=== PATIENT | female | born 1970 ===

== ENCOUNTER 2017-11-14 12:21 | Emergency (ER) | payer OTHER ==
[2017-11-14] MEDS ORDERED: ACETAMINOPHEN 325 MG TAB PO ONE (12:53)
[2017-11-14] MEDS ORDERED: IBUPROFEN 200 MG TAB PO ONE (12:53)
--- NOTE | 2017-11-14 13:04 | EDPHY ---
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 That surgery was performed out of state in [place]. The patient explains that she developed onset of pain without antecedent trauma over the past 2 days early 7/10 intensity achy in nature with new onset swelling in addition to the volar aspect of the proximal ulna near the site of screw per patient. She explains her baseline arthritic pain from that injuries typically 2/10 achy in nature. ROS: No fevers or chills. No fatigue. No other constitutional symptoms. HEENT: No complaints except for a skin cracked in her right nare for the last 2 weeks. pulmonary call pleuritic pain or shortness of breath cardiovascular: No headedness. She reports localized swelling the area of pain but no 2nd humeral region 10 swelling. No discoloration to the arm. Integumentary: No skin rash noted. Musculoskeletal: No recent trauma. 7 ROS is otherwise not. 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 No IV drug use. No cocaine Occasional marijuana. Occasional alcohol Smoking Status: Light smoker Physical Exam: General Appearance: Alert, no distress. Eyes: Pupils equal and round no pallor or injection. ENT, Mouth: Mucous membranes moist. Right nare A do not appreciate any significant soft tissue infectious etiology at the site where she notes a"crack ". Respiratory: There are no retractions, lungs are clear to auscultation. Cardiovascular: Regular rate and rhythm. Patient maintains 2+ symmetric radialis pulses bilateral upper extremities. No delayed capillary refill, pallor or coolness to the left upper extremity. Neurological: GCS 15 with no sensory motor deficits in the affected extremity appreciated. Skin: Warm and dry, no rashes. Musculoskeletal: Extremities atraumatic mole except for left lower extremity Left upper extremity: Patient has mild swelling to the proximal volar ulna with associated tenderness-moderate to exquisite. No significant warmth to touch is appreciated. No forearm swelling and tenderness is present. Psychiatric: Mood and affect normal DIFFERENTIAL DIAGNOSIS: After history and physical exam differential diagnosis was considered for infection at the ORIF site, osteomyelitis, osteoarthritis, DVT Constitutional: Initial Vital Signs Temperature (C) 36.8 C 11/14/17 12:31 Heart Rate 85 11/14/17 12:31 Respiratory Rate 18 11/14/17 12:31 Blood Pressure 127/86 H 11/14/17 12:31 O2 Sat (%) 97 11/14/17 12:31 O2 Delivery Mode Room Air Allergies/Adverse Reactions: ciprofloxacin Allergy (Verified 11/14/17 12:43) Home Medications: Medication Instructions Recorded Ibuprofen [Motrin (*)] 600 mg PO Q6 PRN #30 tab 11/14/17 traMADol [Ultram 50 mg (*)] 50 - 100 mg PO Q4 PRN #20 tab 11/14/17 MDM/Departure - MDM Diagnostics: Three-view elbow x-ray: Hardware intact and in place without bony abnormalities by my interpretation Imaging Results: Imaging Impressions Elbow X-Ray 11/14/17 12:52 Impression: 1. No acute fracture, hardware loosening, or evidence of osteomyelitis. 2. No effusion. 3. Calcific tendinopathy in the triceps tendon. Imaging: I viewed and interpreted images myself Medications Given: Discontinued Medications Acetaminophen (Tylenol) 975 mg PO EDNOW ONE Stop: 11/14/17 12:54 Last Admin: 11/14/17 13:02 Dose: 975 mg Ibuprofen (Motrin) 200 mg PO EDNOW ONE Stop: 11/14/17 12:54 Last Admin: 11/14/17 13:03 Dose: 200 mg ED Course/Re-evaluation: IV, labs Lab results: Normal CBC, normal ESR, blood cultures drawn and pending Tylenol and ibuprofen p.o. Sacha wrap to elbow A radiologist also noted calcific tendinitis to the left elbow I discussed this case with Dr. Stephy Johnson-on-call orthopedic physician Discussion: I suspect this patient has elbow pain is related to her calcific tendinitis with regional inflammation that extends to the olecranon-area of current mild swelling and tenderness. I counseled regarding this. With workup I do not appreciate evidence of osteomyelitis or soft tissue infection. Will plan to treat with ibuprofen, Sacha wrap, Tylenol and tramadol if needed for pain that prevents sleep. She will follow up with her orthopedic physician in [place] or with Dr. Johnson for any ongoing symptoms. She understands need to return emergency department should she develop worsening despite the treatment plan. - Depart Disposition: Home, Routine, Self-Care Clinical Impression: Calcific tendinitis of elbow Condition: Good Instructions: Calcific Tendinitis (ED) Additional Instructions: Diagnosis: Calcific tendinitis of triceps tendon and proximal ulnar pain Plan: Sacha wrap for comfort Ibuprofen 600 mg per 6 hr Tylenol and/or tramadol if needed. No driving, alcohol or come tramadol. Call Dr. Johnson or your orthopedic physician in [place] to arrange follow-up appointment for any ongoing symptoms that persist beyond the next 5-7 days despite the treatment plan Return to the emergency department for any significant worsening despite the treatment plan. Prescriptions: Ibuprofen [Motrin (*)] 600 mg PO Q6 PRN #30 tab PRN Reason: Pain traMADol [Ultram 50 mg (*)] 50 - 100 mg PO Q4 PRN #20 tab PRN Reason: breakthrough pain Referrals: NONE *PRIMARY CARE P,. [Primary Care Provider] - As per Instructions Stephy Johnson MD [Medical Doctor] - As per Instructions
[2017-11-14 13:13] LABS: PLATELET COUNT 319 10^3/uL (150-400)
[2017-11-14 14:08] VITALS: BP 118/62
== END 2017-11-14 14:06 | disposition home or self-care (01) ==
LOC: CED 12:21
DX: M65.222 Calcific tendinitis, left upper arm (principal); F17.200 Nicotine dependence, unspecified, uncomplicated
CPT/HCPCS: 73080-PO; 80048-PO; 85025-PO; 85652-PO